=== PATIENT | female | born 1995 | race Hispanic/Latino ===

== ENCOUNTER 2022-04-14 05:01 | Inpatient (IN) | payer BC ==
[2022-04-14 05:30] VITALS: BMI 31.1
[2022-04-14 05:38] LABS: Fetal Membranes Rupture RUPTURE DETECTED (No Rupture)
[2022-04-14] MEDS ORDERED: Promethazine HCl 25 MG/ML VIAL IM PRN (05:59)
[2022-04-14] MEDS ORDERED: hydrALAZINE 20 MG/ML VIAL SLOW IVP PRN (05:59)
[2022-04-14] MEDS ORDERED: Ondansetron PF 4 MG/2 ML Vial IVP PRN (05:59)
[2022-04-14] MEDS ORDERED: Magnesium Sulfate 20 gm/500 ml 4 GM/100 ML BAG IVPB ONE (06:15)
[2022-04-14] MEDS: Betamet Acet/Betamet Na Ph 30 MG/5 ML VIAL IM SCH (07:16)
[2022-04-14] MEDS: Azithromycin 500 MG in Sodium Chloride 0.9% 250 ML 250 ML IVPB SCH (07:17)
[2022-04-14 07:31] LABS: Hemoglobin 8.5 g/dL (12.0-15.5); Mean Corpuscular HGB CONC 33.1 g/dL (32.0-36.0); Mean Corpuscular Volume 90.8 fl (81.6-98.3); Mean Platelet Volume 10.7 fl (7.4-10.4); Platelet Count 177 10x3/uL (150-450); RBC Distribution Width 12.7 % (11.5-14.5); Red Blood Cell (RBC) Count 2.83 10x6/uL (3.90-5.03); White Blood Cell (WBC) Count 8.1 10x3/uL (3.5-10.5)
[2022-04-14] MEDS: Magnesium Sulfate 20 gm/500 ml 20 GM/500 ML BAG IVPB SCH ×2 (07:31→15:52)
[2022-04-14 08:13] LABS: Hep B Surf Ag Non-Reactive S/CO (NonReactive); Syphilis Antibody Nonreactive (Nonreactive); Syphilis Antibody Index 0.07 S/CO (<1.00 Non-Reactive)
[2022-04-14 08:17] LABS: HBSAg Index 0.18 S/CO (0-0.99)
[2022-04-14] MEDS: Ampicillin 2 GM in Sodium Chloride 0.9% 100 ML IVPB SCH ×3 (08:57→21:28)
[2022-04-14 12:27] LABS: SARS-CoV-2 NAA Rapid Test Not Detected (NotDetected)
[2022-04-15] MEDS: Ampicillin 2 GM in Sodium Chloride 0.9% 100 ML IVPB SCH ×4 (04:00→22:31)
[2022-04-15] MEDS: Betamet Acet/Betamet Na Ph 30 MG/5 ML VIAL IM SCH (07:24)
[2022-04-15] MEDS: Azithromycin 500 MG in Sodium Chloride 0.9% 250 ML 250 ML IVPB SCH (07:25)
[2022-04-15] MEDS ORDERED: Prenatal Vitamin 1 TAB PO SCH (11:45)
[2022-04-15] MEDS: Ferrous Sulfate 325 MG TAB PO SCH (17:26)
[2022-04-16] MEDS: Ampicillin 2 GM in Sodium Chloride 0.9% 100 ML IVPB SCH ×3 (05:29→19:00)
[2022-04-16] MEDS ORDERED: Calcium Carbonate 500 MG ChewTAB PO PRN (06:58)
[2022-04-16] MEDS: Acetaminophen 500 MG TAB PO SCH ×2 (07:08→07:49)
[2022-04-16] MEDS ORDERED: diphenhydrAMINE 50 MG/ML VIAL ONE (09:59)
[2022-04-16] MEDS ORDERED: Butorphanol Tartrate 1 MG/ML VIAL ONE (09:59)
[2022-04-16] MEDS ORDERED: diphenhydrAMINE 50 MG/ML VIAL IVP SCH (10:00)
[2022-04-16] MEDS ORDERED: Butorphanol Tartrate 1 MG/ML VIAL SLOW IVP SCH (10:00)
[2022-04-16] MEDS: Butorphanol Tartrate 1 MG/ML VIAL SLOW IVP PRN ×3 (12:15→22:10)
[2022-04-17] MEDS: Ampicillin 2 GM in Sodium Chloride 0.9% 100 ML IVPB SCH ×3 (01:00→19:11)
[2022-04-17] MEDS: Ferrous Sulfate 325 MG TAB PO SCH ×3 (07:02→17:51)
[2022-04-17] MEDS: Prenatal Vitamin 1 TAB PO SCH ×2 (07:02→08:35)
[2022-04-17] MEDS: Acetaminophen 500 MG TAB PO PRN ×2 (12:45→18:56)
[2022-04-17] MEDS: AMOXicillin 250 MG CAP PO SCH ×2 (15:00→21:48)
[2022-04-17] MEDS: Azithromycin 250 MG TAB PO SCH (15:00)
[2022-04-17 22:16] LABS: Bilirubin Neg (Negative); Blood, Urine Negative (Negative); Clarity Clear (Clear); Glucose, Urine (Dipstick) Normal (Negative); Ketone, Urine Negative (Negative); Leukocyte Negative (Negative); Nitrite Negative (Negative); Protein, Urine (Dipstick) Negative (Neg-Trace)
[2022-04-17 22:19] LABS: Urine Culture Reflex No No
[2022-04-17 22:23] LABS: WBC/HPF 0-3 HPF (0-3)
[2022-04-17 22:24] LABS: Bacteria/HPF 1+ HPF (None Seen); RBC/HPF None Seen HPF (0-3)
[2022-04-18] MEDS: AMOXicillin 250 MG CAP PO SCH ×3 (05:48→22:45)
[2022-04-18] MEDS: Acetaminophen 500 MG TAB PO PRN ×2 (07:08→12:44)
[2022-04-18] MEDS: Ferrous Sulfate 325 MG TAB PO SCH ×2 (08:57→18:03)
[2022-04-18] MEDS: Prenatal Vitamin 1 TAB PO SCH (08:57)
[2022-04-18 11:41] LABS: Chlam.trachomatis by PCR,Urine Not Detected (NotDetected)
[2022-04-18] MEDS: Azithromycin 250 MG TAB PO SCH (12:44)
[2022-04-18] MEDS ORDERED: Lactated Ringer's 500 ML IV PRN (17:34)
[2022-04-18] MEDS ORDERED: Metoclopramide HCl 10 MG/2 ML VIAL IVP PRN ×4 (17:35→17:40)
[2022-04-18] MEDS ORDERED: diphenhydrAMINE 50 MG/ML VIAL IVP PRN ×2 (17:36→17:39)
[2022-04-18] MEDS ORDERED: Bisacodyl 10 MG SUPP PR PRN (22:41)
[2022-04-18] MEDS ORDERED: Milk Of Magnesia 30 ML UDCUP PO PRN (22:41)
[2022-04-19] MEDS: AMOXicillin 250 MG CAP PO SCH ×2 (08:50→16:03)
[2022-04-19] MEDS: Ferrous Sulfate 325 MG TAB PO SCH ×2 (08:50→18:35)
[2022-04-19] MEDS: Prenatal Vitamin 1 TAB PO SCH (08:50)
[2022-04-19] MEDS: Docusate 100 MG CAP PO SCH (08:50)
[2022-04-19] MEDS: Azithromycin 250 MG TAB PO SCH (14:07)
[2022-04-20] MEDS: AMOXicillin 250 MG CAP PO SCH ×2 (00:01→08:17)
[2022-04-20] MEDS: Docusate 100 MG CAP PO SCH ×2 (06:29→08:17)
[2022-04-20] MEDS: Prenatal Vitamin 1 TAB PO SCH (08:17)
[2022-04-20] MEDS: Ferrous Sulfate 325 MG TAB PO SCH (08:17)
[2022-04-21] MEDS ORDERED: hydrOXYzine Pamoate 25 mg Capsule PO SCH (01:00)
[2022-04-21] MEDS: AMOXicillin 250 MG CAP PO SCH ×2 (01:11→10:43)
[2022-04-21] MEDS ORDERED: ceFAZolin 2 GM/Dextrose 50 ML IVPB ONE (02:38)
[2022-04-21 02:48] LABS: #Basophils 0.1 10x3/uL (0.0-0.2); #Eosinphils 0.1 10x3/uL (0.0-0.5); #Neutrophils 13.6 10x3/uL (1.5-8.4); %Basophils 0.4 % (0.0-2.0); %Eosinophils 0.6 % (0.0-6.0); %Lymphocytes 10.6 % (18.0-47.0); %Monocytes 5.7 % (0.0-10.0); Hemoglobin 12.5 g/dL (12.0-15.5); Mean Corpuscular Hemoglobin 29.8 pg (27.0-33.0); Mean Corpuscular Volume 90.5 fl (81.6-98.3); Mean Platelet Volume 10.5 fl (7.4-10.4); Platelet Count 234 10x3/uL (150-450); RBC Distribution Width 13.2 % (11.5-14.5); Red Blood Cell (RBC) Count 4.19 10x6/uL (3.90-5.03)
[2022-04-21] MEDS ORDERED: Carboprost 250 MCG/ML AMP ONE (02:49)
[2022-04-21] MEDS ORDERED: Methylergonovine 0.2 MG/ML VIAL ONE (02:49)
[2022-04-21] MEDS ORDERED: Misoprostol 200 MCG TAB ONE (02:50)
[2022-04-21] MEDS ORDERED: Dexamethasone 4 mg/ml Vial ONE (03:14)
[2022-04-21] MEDS ORDERED: Morphine PF 10 MG/10 ML VIAL ONE (03:14)
[2022-04-21] MEDS ORDERED: Oxytocin 10 UNITS/ML VIAL ONE ×2 (03:14→04:18)
[2022-04-21] MEDS ORDERED: Phenylephrine 40 MG/NS 250 ML 250 ML ONE (03:14)
[2022-04-21] MEDS ORDERED: Fentanyl 100 MCG/2 ML VIAL ONE (03:14)
[2022-04-21] MEDS ORDERED: Ketorolac Tromethamine 30 MG/ML VIAL ONE (03:14)
[2022-04-21] MEDS ORDERED: Ondansetron PF 4 MG/2 ML Vial ONE (03:14)
[2022-04-21] MEDS ORDERED: Meperidine HCl/PF 25 MG/ML VIAL SLOW IVP PRN (04:32)
[2022-04-21] MEDS ORDERED: Naloxone HCl 0.4 mg/ml Vial IVP PRN ×2 (04:32)
[2022-04-21] MEDS ORDERED: Fentanyl 100 MCG/2 ML VIAL SLOW IVP PRN (04:32)
[2022-04-21] MEDS ORDERED: Moisturizing Cream (Eucerin) 113 GM JAR TOP PRN (04:32)
[2022-04-21] MEDS ORDERED: Naloxone HCl 0.4 mg/ml Vial IV PRN (04:32)
[2022-04-21] MEDS ORDERED: Promethazine HCl 25 MG SUPP PR PRN (04:32)
[2022-04-21] MEDS ORDERED: diphenhydrAMINE 50 MG/ML VIAL IVP PRN (04:32)
[2022-04-21] MEDS ORDERED: Ondansetron HCl/PF 4 MG/2 ML Vial IVP PRN (04:32)
[2022-04-21] MEDS ORDERED: Ondansetron PF 4 MG/2 ML Vial IVP PRN (04:32)
[2022-04-21] MEDS ORDERED: Promethazine HCl 25 MG/ML VIAL IM PRN ×2 (04:32→08:58)
[2022-04-21] MEDS ORDERED: Ketorolac Tromethamine 30 MG/ML VIAL IVP PRN (04:32)
[2022-04-21] MEDS ORDERED: Communication Order-Pharmacy FS SCH (04:45)
[2022-04-21 07:04] LABS: HIV (1/2) Antibody/Antigen Non-Reactive (NonReactive); HIV 1/2 INDEX 0.07 S/CO (<1.00)
[2022-04-21] MEDS ORDERED: Varicella virus, LIVE 0.5 ML VIAL SC ONE (08:58)
[2022-04-21] MEDS ORDERED: hydrALAZINE 20 MG/ML VIAL SLOW IVP PRN (08:58)
[2022-04-21] MEDS ORDERED: Methylergonovine 0.2 MG/ML VIAL IM PRN (08:58)
[2022-04-21] MEDS ORDERED: Misoprostol 200 MCG TAB PR PRN (08:58)
[2022-04-21] MEDS ORDERED: Bisacodyl 10 MG SUPP PR PRN (08:58)
[2022-04-21] MEDS ORDERED: diphenhydrAMINE 25 MG CAP PO PRN (08:58)
[2022-04-21] MEDS ORDERED: NS w/ Oxytocin 30 units 500 ML IV SCH (08:58)
[2022-04-21] MEDS ORDERED: HYDROcodone/Acetaminophen 5/325 mg Tablet PO PRN (08:58)
[2022-04-21] MEDS ORDERED: Boostrix 0.5 ML (Tdap) VIAL IM ONE (08:58)
[2022-04-21] MEDS ORDERED: Measles/Mumps/Rubella 10 MCG/0.5 ML VIAL SC ONE (08:58)
[2022-04-21] MEDS ORDERED: Lanolin Ointment 7 GM TUBE TOP PRN (08:58)
[2022-04-21] MEDS ORDERED: Zolpidem Tartrate 5 MG TAB PO PRN (08:58)
[2022-04-21] MEDS: Ferrous Sulfate 325 MG TAB PO SCH ×3 (10:42→21:03)
[2022-04-21] MEDS: Docusate 100 MG CAP PO SCH ×3 (10:42→21:00)
[2022-04-21] MEDS: Prenatal Vitamin 1 TAB PO SCH (10:42)
[2022-04-21] MEDS: Azithromycin 250 MG TAB PO SCH (10:43)
[2022-04-21] MEDS ORDERED: Butorphanol Tartrate 1 MG/ML VIAL SLOW IVP PRN (16:45)
[2022-04-22] MEDS: HYDROcodone/Acetaminophen 5/325 mg Tablet PO PRN ×2 (04:13→14:14)
[2022-04-22] MEDS: Simethicone Chewable 80 MG TAB PO PRN (04:19)
[2022-04-22 04:47] LABS: Hemoglobin 10.2 g/dL (12.0-15.5); Mean Corpuscular HGB CONC 34.1 g/dL (32.0-36.0); Mean Corpuscular Hemoglobin 30.3 pg (27.0-33.0); Mean Corpuscular Volume 88.7 fl (81.6-98.3); Mean Platelet Volume 10.7 fl (7.4-10.4); Platelet Count 214 10x3/uL (150-450); RBC Distribution Width 13.1 % (11.5-14.5); Red Blood Cell (RBC) Count 3.37 10x6/uL (3.90-5.03); White Blood Cell (WBC) Count 15.4 10x3/uL (3.5-10.5)
[2022-04-22] MEDS: Ibuprofen 800 MG TAB PO SCH ×3 (06:19→21:30)
[2022-04-22] MEDS: Ferrous Sulfate 325 MG TAB PO SCH ×2 (08:55→21:31)
[2022-04-22] MEDS: Prenatal Vitamin 1 TAB PO SCH (10:26)
[2022-04-22] MEDS: Docusate 100 MG CAP PO SCH ×2 (10:27→21:30)
[2022-04-23 04:09] VITALS: TEMP 98.5
[2022-04-23] MEDS: Ibuprofen 800 MG TAB PO SCH (06:17)
[2022-04-23] MEDS: HYDROcodone/Acetaminophen 5/325 mg Tablet PO PRN (06:17)
[2022-04-23] MEDS: Ferrous Sulfate 325 MG TAB PO SCH (07:17)
[2022-04-23 08:24] VITALS: BP 109/62
[2022-04-23] MEDS: Docusate 100 MG CAP PO SCH (09:19)
[2022-04-23] MEDS: Prenatal Vitamin 1 TAB PO SCH (09:19)
[2022-04-23] MEDS: Simethicone Chewable 80 MG TAB PO PRN (09:20)
== END 2022-04-23 15:09 | disposition home or self-care (01) | DRG 786 ==
LOC: CSHLD/OP 05:01 → CSHLD 05:58 → CSHPP 04-21 07:45
PROVIDERS: ADMIT Obstetrics & Gynecology; ATTEND Obstetrics & Gynecology
PROC: 10D00Z1 Extraction of Products of Conception, Low, Open Approach (ICD-10-PCS; principal; 2022-04-20)
DX: O42.113 Preterm premature rupture of membranes, onset of labor more than 24 hours following rupture, third trimester (principal); O60.13X0 Preterm labor second trimester with preterm delivery third trimester, not applicable or unspecified; O41.1230 Chorioamnionitis, third trimester, not applicable or unspecified; Z3A.32 32 weeks gestation of pregnancy; Z20.822 Contact with and (suspected) exposure to COVID-19; R51.9 Headache, unspecified; O99.892 Other specified diseases and conditions complicating childbirth; Z37.0 Single live birth; O32.8XX0 Maternal care for other malpresentation of fetus, not applicable or unspecified; O76 Abnormality in fetal heart rate and rhythm complicating labor and delivery
CPT/HCPCS: 36415; 51702; 70551; 76815; 76816; 81001; 84112; 85025; 85027; 86780; 86850; 86900; 86901; 87081; 87340; 87389; 88307; 99285; J0290; J0456; J0595; J0702; J1100; J1200; J1885; J2274; J2405; J2550; J2590; J2765; J3010; J3475; J3490; J7050; Q0177; U0002